=== PATIENT | female | born 1940 | race American Indian/Alaskan Native ===

== ENCOUNTER 2017-02-17 23:03 | Inpatient (IN) | payer MEDICARE ==
[2017-02-17] MEDS ORDERED: CATAPRES PO ONE (23:40)
[2017-02-17 23:53] LABS: Basophils % (Auto) 0.3 % (0.0-1.8); Eosinophils % (Auto) 1.4 % (0.0-4.3); Hematocrit 43.3 % (30.3-42.9); Hemoglobin 13.6 gm/dl (10.1-14.3); Mean Corpuscular HGB Conc 32 % (30-34); Mean Corpuscular Hemoglobin 29 pg (28-32); Mean Corpuscular Volume 93 fl (79-97); Platelet Count 307 K/mm3 (140-440); Red Blood Count 4.64 M/mm3 (3.65-5.03); Red Cell Distribution Width 13.9 % (13.2-15.2); White Blood Count 6.6 K/mm3 (4.5-11.0)
[2017-02-18 00:36] LABS: INR 16.12 (0.87-1.13)
[2017-02-18 01:21] LABS: Anion Gap 20 mmol/L; BUN/Creatinine Ratio 11.81; Blood Urea Nitrogen 13 mg/dL (7-17); Calcium 9.1 mg/dL (8.4-10.2); Carbon Dioxide 23 mmol/L (22-30); Chloride 103.4 mmol/L (98-107); Glucose 121 mg/dL (65-100); Potassium 3.8 mmol/L (3.6-5.0); Sodium 143 mmol/L (137-145)
[2017-02-18] MEDS ORDERED: VITAMIN K (ADULT ONLY) SUB-Q ONE (01:31)
--- NOTE | 2017-02-18 01:36 | Emergency Department Report ---
HPI - General Chief Complaint: Weakness Time Seen by Provider: 02/18/17 01:30 - HPI HPI: Patient sent to ED by PCP because her INR was above 10. Patient denies any symptoms state that she takes her INR for history of stroke. Patient denies any bleeding episodes, chest pain, nausea, vomiting blood. ED Past Medical Hx - Past Medical History Hx Hypertension: Yes Hx CVA: Yes Hx Congestive Heart Failure: No Hx Diabetes: No Hx Seizures: No Hx Psychiatric Treatment: Yes Hx Asthma: No Hx COPD: No Hx Dementia: Yes Hx HIV: No Additional medical history: ATRIAL FIB - Surgical History Hx Coronary Stent: No Hx Open Heart Surgery: No - Social History Smoking Status: Never Smoker Substance Use Type: None - Medications Home Medications: Home Medications Medication Instructions Recorded Confirmed Last Taken Type Folic Acid [Folvite] 1 mg PO DAILY 09/27/13 02/18/17 02/17/17 History 1MG Metoprolol [Lopressor TAB] 50 mg PO DAILY 09/27/13 02/18/17 02/17/17 History 50MG Sucralfate [Carafate] 1 tab PO DAILY 09/27/13 02/18/17 02/17/17 History 1MG risperiDONE 0.5 mg PO HS 09/27/13 02/18/17 02/17/17 History 0.5 MG Simvastatin [Zocor TAB] 20 mg PO QHS 01/22/15 02/18/17 02/17/17 History 20MG Memantine HCl 10 mg PO DAILY 02/18/17 02/18/17 02/17/17 History 10MG Warfarin [Coumadin] 7.5 mg PO DAILY@1700 02/18/17 02/18/17 02/17/17 History 7.5 ED Review of Systems ROS: Stated complaint: ABNORMAL LABS Other details as noted in HPI Comment: All other systems reviewed and negative Endocrine: no symptoms reported Musculoskeletal: as per HPI Physical Exam - Physical Exam Vital Signs: Vital Signs 02/17/17 02/17/17 02/18/17 23:27 23:48 00:18 Temperature 98.3 F 98.8 F Pulse Rate 102 H 103 H 102 H Respiratory 16 18 Rate Blood Pressure 185/113 185/113 Blood Pressure 187/103 [Left] O2 Sat by Pulse 96 95 Oximetry Physical Exam: Gen. alert and oriented 3 in no distress Head atraumatic normocephalic Eyes PERR LA EOMI Chest regular rate and rhythm normal S1-S2 lungs clear bilaterally Abdomen soft nondistended Back no point tenderness paravertebral tenderness Neuro no focal deficit. Psych normal mood. ED Course Vital Signs 02/17/17 02/17/17 02/18/17 23:27 23:48 00:18 Temperature 98.3 F 98.8 F Pulse Rate 102 H 103 H 102 H Respiratory 16 18 Rate Blood Pressure 185/113 185/113 Blood Pressure 187/103 [Left] O2 Sat by Pulse 96 95 Oximetry ED Medical Decision Making - Lab Data Result diagrams: 02/17/17 23:38 02/17/17 23:38 Critical care attestation.: If time is entered above; I have spent that time in minutes in the direct care of this critically ill patient, excluding procedure time. ED Disposition Clinical Impression: Supratherapeutic INR Disposition: -09 OP ADMIT IP TO THIS HOSP Is pt being admited?: Yes Condition: Stable Referrals: PRIMARY CARE, [Primary Care Provider] - 3-5 Days
[2017-02-18] MEDS ORDERED: NACL 0.9% 500 ML 500 ML IV ONE ×2 (01:39→13:40)
--- NOTE | 2017-02-18 02:13 | History and Physical Report ---
History of Present Illness Date of examination: 02/18/17 Chief complaint: Elevated INR History of present illness: 76-year-old -Mal[place] female with past medical history significant for dementia, CVA, hypertension, A. fib on Coumadin was brought by her daughter for elevated INR. Her INR is emergency department was 16.2. Patient didn't have any bleeding, no other complaints. Patient has been on 7.5 mg of Coumadin. REVIEW OF SYSTEMS: GENERAL: no weight change, no fatigue, no fever HEAD: no head ache EYES: no blurry vision, no acute visual loss EARS: no hearing loss, no discharge, no earache NOSE: no stuffiness, no sneezing, no discharge MOUTH, THROAT AND NECK: no bleeding gums, no sore throat, no swollen neck CARDIAC: no palpitations, no dyspnea on exertion, no orthopnea, no PND, no edema , no chest pain RESPIRATORY: no shortness of breath, no wheeze, no cough, no sputum, no hemoptysis, no asthma GI: no decreased appetite, no nausea, no vomiting, no dysphagia, no diarrhea, no constipation, no abdominal pain URINARY: no change in frequency, no urgency, no polyuria, no hematuria, no incontinence MUSCULOSKELETAL: no muscle weakness, no pain, no joint stiffness NEUROLOGIC: no loss of sensation/numbness, no tingling, no tremors, no weakness/ paralysis HEMATOLOGIC: no anemia, no easy bruising SKIN: no rashes ENDOCRINE: no heat/cold intolerance, no polyuria, no polydipsia, no thyroid problems, no diabetes PSYCHIATRIC: no anxiety, no depression, no suicidal ideations Past History Past Medical History: atrial fib, hypertension, stroke, other (dementia) Past Surgical History: No surgical history Social history: full code. denies: smoking, alcohol abuse, prescription drug abuse, IV drug use Family history: no significant family history Medications and Allergies Allergies Allergy/AdvReac Type Severity Reaction Status Date / Time No Known Allergies Allergy Verified 03/26/15 11:57 Home Medications Medication Instructions Recorded Confirmed Last Taken Type Folic Acid [Folvite] 1 mg PO DAILY 09/27/13 02/18/17 02/17/17 History 1MG Metoprolol [Lopressor TAB] 50 mg PO DAILY 09/27/13 02/18/17 02/17/17 History 50MG Sucralfate [Carafate] 1 tab PO DAILY 09/27/13 02/18/17 02/17/17 History 1MG risperiDONE 0.5 mg PO HS 09/27/13 02/18/17 02/17/17 History 0.5 MG Simvastatin [Zocor TAB] 20 mg PO QHS 01/22/15 02/18/17 02/17/17 History 20MG Memantine HCl 10 mg PO DAILY 02/18/17 02/18/17 02/17/17 History 10MG Warfarin [Coumadin] 7.5 mg PO DAILY@1700 02/18/17 02/18/17 02/17/17 History 7.5 Exam - Physical Exam Narrative exam: Not in cardiopulmonary distress. The patient is obese. Vital signs as documented. Head exam is unremarkable. No scleral icterus . Neck is without jugular venous distension, thyromegaly, or carotid bruits. Lungs are clear to auscultation. Cardiac exam reveals regular rate and Rhythm. First and second heart sounds normal. No murmurs, rubs or gallops. Abdominal exam reveals normal bowel sounds, no masses, no organomegaly and no aortic enlargement. Extremities are nonedematous and both femoral and pedal pulses are normal. 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 No focal weakness. - Constitutional Vitals: Temp Pulse Resp BP Pulse Ox 98.8 F 102 H 18 187/103 95 02/18/17 00:18 02/18/17 00:18 02/18/17 00:18 02/18/17 00:18 02/18/17 00:18 Results - Labs CBC & Chem 7: 02/17/17 23:38 02/17/17 23:38 Labs: Laboratory Last Values WBC 6.6 K/mm3 (4.5-11.0) 02/17/17 23:38 RBC 4.64 M/mm3 (3.65-5.03) 02/17/17 23:38 Hgb 13.6 gm/dl (10.1-14.3) 02/17/17 23:38 Hct 43.3 % (30.3-42.9) H 02/17/17 23:38 MCV 93 fl (79-97) 02/17/17 23:38 MCH 29 pg (28-32) 02/17/17 23:38 MCHC 32 % (30-34) 02/17/17 23:38 RDW 13.9 % (13.2-15.2) 02/17/17 23:38 Plt Count 307 K/mm3 (140-440) 02/17/17 23:38 Lymph % (Auto) 29.2 % (13.4-35.0) 02/17/17 23:38 [place] % (Auto) 7.9 % (0.0-7.3) H 02/17/17 23:38 Eos % (Auto) 1.4 % (0.0-4.3) 02/17/17 23:38 Baso % (Auto) 0.3 % (0.0-1.8) 02/17/17 23:38 Lymph # 1.9 K/mm3 (1.2-5.4) 02/17/17 23:38 [place] # 0.5 K/mm3 (0.0-0.8) 02/17/17 23:38 Eos # 0.1 K/mm3 (0.0-0.4) 02/17/17 23:38 Baso # 0.0 K/mm3 (0.0-0.1) 02/17/17 23:38 Seg Neutrophils % 61.2 % (40.0-70.0) 02/17/17 23:38 Seg Neutrophils # 4.1 K/mm3 (1.8-7.7) 02/17/17 23:38 PT 119.0 Sec. (12.2-14.9) H 02/17/17 23:38 INR 16.12 (0.87-1.13) H* 02/17/17 23:38 Sodium 143 mmol/L (137-145) 02/17/17 23:38 Potassium 3.8 mmol/L (3.6-5.0) 02/17/17 23:38 Chloride 103.4 mmol/L (98-107) 02/17/17 23:38 Carbon Dioxide 23 mmol/L (22-30) 02/17/17 23:38 Anion Gap 20 mmol/L 02/17/17 23:38 BUN 13 mg/dL (7-17) 02/17/17 23:38 Creatinine 1.1 mg/dL (0.7-1.2) 02/17/17 23:38 Estimated GFR 58 ml/min 02/17/17 23:38 BUN/Creatinine Ratio 11.81 % 02/17/17 23:38 Glucose 121 mg/dL (65-100) H 02/17/17 23:38 Calcium 9.1 mg/dL (8.4-10.2) 02/17/17 23:38 Troponin T < 0.010 ng/mL (0.00-0.029) 02/17/17 23:38 - Imaging and Cardiology EKG: image reviewed (normal sinus rhythm) Assessment and Plan Assessment and plan: Warfarin toxicity Hypertensive urgency A.fib Dementia History of stroke - will give the patient FFP, vitamin K, stop warfarin - resume appropriate home medications, Hydralazine PRN - supportive care - CT head ordered DVT prophylaxis - Not indicated , INR 16 Disposition - to telemetry floor Advance Directives: Yes Contraindication Mechanical VTE Prophylaxis: Contraindicated Reason for no VTE Prophylaxis: Medical contraindication Plan of care discussed with patient/family: Yes
[2017-02-18 09:38] LABS: Basophils % (Auto) 0.3 % (0.0-1.8); Eosinophils % (Auto) 0.5 % (0.0-4.3); Hematocrit 42.5 % (30.3-42.9); Hemoglobin 13.5 gm/dl (10.1-14.3); Mean Corpuscular HGB Conc 32 % (30-34); Mean Corpuscular Hemoglobin 29 pg (28-32); Mean Corpuscular Volume 92 fl (79-97); Platelet Count 301 K/mm3 (140-440); White Blood Count 7.2 K/mm3 (4.5-11.0)
--- NOTE | 2017-02-18 09:57 | Cat Scan Report ---
CT scan of head without contrast: History: Warfarin toxicity. Findings: Ventricles are normal in size and midline in location. Moderate volume loss. No evidence of acute ischemia, hemorrhage or mass. No extra-axial fluid collection. Normal brainstem and cerebellum. Minimal mucosal edema of the right ethmoid sinuses and normal mastoid air cells. Impression: No acute intracranial abnormality. Sinus disease.
[2017-02-18] MEDS: FOLVITE PO SCH (10:53)
[2017-02-18] MEDS: NAMENDA XR PO SCH (10:53)
[2017-02-18] MEDS: LOPRESSOR PO SCH (10:53)
[2017-02-18] MEDS: CARAFATE PO SCH (10:53)
[2017-02-18 12:01] LABS: INR TNR (0.87-1.13)
[2017-02-18 12:56] LABS: INR > 17.67 (0.87-1.13)
[2017-02-18] MEDS ORDERED: VITAMIN K *ORAL LIQUID PO ONE (13:17)
[2017-02-18] MEDS ORDERED: VITAMIN K (ADULT ONLY) 10 MG in NACL 0.9% 50 ML IV ONE (13:17)
--- NOTE | 2017-02-18 14:53 | Event Note ---
Date: 02/18/17 pt seen and examined. INR still >17 will transfuse 4 units of FFP Will also give additional vit K
[2017-02-18] MEDS: APRESOLINE IV PRN (16:09)
[2017-02-18] MEDS: RisperDAL PO SCH (21:56)
[2017-02-18] MEDS: ZOCOR PO SCH (21:56)
[2017-02-19 02:34] LABS: INR 3.14 (0.87-1.13)
[2017-02-19] MEDS: NAMENDA XR PO SCH (09:17)
[2017-02-19] MEDS: CARAFATE PO SCH (09:17)
[2017-02-19] MEDS: FOLVITE PO SCH (09:17)
[2017-02-19] MEDS: LOPRESSOR PO SCH (09:17)
--- NOTE | 2017-02-19 10:07 | Admit Criteria Form ---
Admission Criteria Documentation: HEMATOLOGY GRG Clinical Indications for Admission to Inpatient Care ( [facility]/check or initial the applicable condition/criteria) Hospital Admission is needed for appropriate care of the patient because 1 or more of the following: [ ]I. Severe anemia indicated by 1 or more of the following (1)(2)(3) [ ]a) Altered mental status [ ]b) Chest pain [ ]c) Exertional dyspnea [ ]d) Syncope [ ]e) Other findings suggesting inadequate perfusion [ ]f) Treatment with transfusion or volume replacement is ineffective at resolving 1 or more of the following [A]: [ ]i) Tachycardia [ ]ii) Orthostatic vital sign changes as indicated by 1 or more of the following (4) [ ]1) Fall in SBP of 20 mm Hg or more 1 to 3 minutes after patient sits or stands from recumbent position [ ]2) Fall in DBP of 10 mm Hg or more 1 to 3 minutes after patient sits or stands from recumbent position [ ]II. High-risk febrile neutropenia [B] as indicated by 1 or more of the following(5)(6)(7)(8)(9) [ ]a) Profound neutropenia (C) anticipated to extend for more than 7 days [ ]b) Hemodynamic instability [ ]c) Hypoxemia [ ]d) Tachypnea [ ]e) Altered mental status [ ]f) Altered mental status [ ]g) New onset vomiting or diarrhea [ ]h) Oral or gastrointestinal mucositis that interferes with swallowing or causes severe diarrhea [ ]i) Focal infection (eg cellulitis, pneumonia, central line or catheter infection, perirectal abscess) [ ]j) Renal insufficiency (e.g., GFR of less than 30 mL/min/1.73m2 ( 0.5 mL/sec/1.73m2) [ ]k) Severe liver dysfunction (transaminase levels greater than 5 times normal) [ ]l) Platelet count less than 50,000/mm3 (50 x109/L)(6) [ ]m) Leukemia or lymphoma induction therapy [ ]n) Leukemia not in complete remission or with evidence of disease progression [ ]o) Bone marrow transplant patient [ ]p) Alemtuzumab being used for therapy [ ]q) [employer] Supportive Care in Cancer (MASCC) Risk Index score of < 21 [o) D](7)(10)(11) [ ]III. High-risk low platelet count as indicated by 1 or more of the following( 12)(13)(14) [ ]a) Severe or life-threatening bleeding (eg, intracranial, major gastrointestinal, or extensive mucosal bleeding), with any reduced platelet count [ ]b) Platelet count less than 20,000/mm3 (20 x109/L) with any active bleeding [ ]c) Platelet count less than 10,000/mm3 (10 x109/L) with minor purpura or petechiae [ ]d) Platelet count less than 5000/mm3 (5 x109/L) [ ]e) Low platelet count with hemolytic anemia [ ]IV. Active hemolysis with high-risk findings, including 1 or more of the following(15)(16)(17)(18)(19) [ ]a) Hematocrit less than 25% (0.25) [ ]b) Rapidly progressing anemia c) Thrombocytopenia(12)(13) [ ]d) Evidence of thrombosis or new renal insufficiency (eg hemolytic uremic syndrome) (20)(21)(22) [ ]V. Henonch-Schonlein purpura(23) [ ]Vl. Bleeding disorder with high-risk features (eg, hemophilia, coagulopathy) as indicated by 1 or more of the following (24)(25)(26)(27)(28) [ ]a) Central nervous system bleeding [ ]b) Retroperitoneal bleeding [ ]c) Retropharyngeal bleeding [ ]d) Gastrointestinal bleeding (29) [ ]e) Alveolar hemorrhage (30) [ ]f) Purpura [ ]f) Disseminated intravascular coagulation(31)(32) [ ]g) Major trauma(33)(34)(35) [ ]h) Deep laceration [ ]i) Head trauma(36) [ ]j) Traumatic or spontaneous expanding internal hematoma (eg retroperitonal occular) [ ]k) Failed outpatient management [X ]Bishnu. Severe over-anticoagulation or high-risk situation as indicated by 1 or more of the following(37)(38)(39) [ ]a) Active bleeding(40) [ ]b) International normalized ratio 5 or greater and rapid reversal needed [X]c) International normalized ratio 9 or greater [ ]VIIl. Congenital immunodeficiency states with severe morbidity as indicated by 1 or more of the following(41)(42)(43)(44) [ ]a) Severe infection [ ]b) Bone marrow transplant needed [ ]lX. Hyperviscosity syndrome with high-risk indicators indicated by 1 or more of the following (19)(45)(46)(47)(48) [ ]a) Polycythemia vera with hematocrit greater than 60% (0.60) [ ]b) Elevated platelet count associated with thrombosis, bleeding, or life-threatening organ dysfunction [ ]c) Severe signs or symptoms from elevated red cell, white cell, or protein levels, including 1 or more of the following: [ ]i) Altered mental status that is severe or psersistent [ ]ii) Dyspnea [ ]iii) Chest x-ray infiltrate [ ]iv) Visual changes [ ]v) Retinal abnormalities [ ]vi) Neuromuscular symptoms [ ]vii) Suspected ischemia or thrombosis [ ]viii) Bleeding [ ]X. Cryoglobulinemia requiring inpatient care due 1 or more of the following:( 49) [ ]a) Severe systemic effects (eg, glomerunephritis, other end organ damage due to vasculitis) [ ]b) Hyperviscosity (eg, acute thrombosis) [ ]c) Need for specified treatment that can only be managed in inpatient setting [ ]Xl. Methemoglobinemia and 1 or more of the following (50)(51): [ ]a) Hypotension [ ]b) Methemoglobinemia [ ]c) Cyanosis [ ]d) Seizure [ ]e) Lactic acidosis [ ]f) other severe symptoms due to tissue hypoxia (52)(53) [ ]Xll. Spleen trauma with blood loss or other need for acute (medical) treatment (34) [ ]Xlll. Transfusion reaction requiring inpatient care (eg, anaphylaxis, hemolysis, transfusion-related lung injury Hemodynamic instability)(54)(55)(56) [ ]XlV.Thrombotic disorder requiring inpatient care (eg, heparin-induced thrombocytopenia, castartrophic antiphospholipid syndrome, thrombotic thrombocytopenia) as indicated by 1 or more of the following (12)(57)(58)(59)(60): [ ]a) Need for inpatient treatment (e.g. IV anticoagulation, IV immunosuppression, plasma exchange) [ ]b) Need for inpatient monitoring (e.g. frequent laboratory testing, response to therapy) [ ]XV. Hematology condition symptom or finding for which emergency and observation care have failed or are not considered appropriate (See General Criteria: Observation Care General Admission Criteria or Pediatric General Admission Criteria guideline as appropriate The original [facility] content created by [facility] has been revised. The portions of the content which have been revised are identified through the use of italic text or in bold, and [facility] has neither reviewed nor approved the modified material. All other unmodified content is copyright [facility]. Please see references footnoted in the original [facility] edition 2017 Admission Criteria Met: Yes
--- NOTE | 2017-02-19 14:06 | Consultation ---
History of Present Illness Consult date: 02/19/17 Consult reason: atrial fibrillation, other (Supra therapeutic INR) History of present illness: This is a 76yr old woman who was sent to the ED for supra therapeutic INR. Patient has a history of paroxysmal atrial fibrillation/flutter and is on warfarin for oral anticoagulation. Initial labs shows an INR of 16.12. Head CT reports no acute intracranial process. Cardiac consultation was requested for paroxysmal atrial fibrillation on anticoagulation therapy. Past History Past Medical History: atrial fib, hypertension, stroke, other (Dementia) Social history: full code. denies: smoking, alcohol abuse, prescription drug abuse, IV drug use Family history: no significant family history Medications and Allergies Allergies Allergy/AdvReac Type Severity Reaction Status Date / Time No Known Allergies Allergy Verified 03/26/15 11:57 Home Medications Medication Instructions Recorded Confirmed Last Taken Type Folic Acid [Folvite] 1 mg PO DAILY 09/27/13 02/18/17 02/17/17 History 1MG Metoprolol [Lopressor TAB] 50 mg PO DAILY 09/27/13 02/18/17 02/17/17 History 50MG Sucralfate [Carafate] 1 tab PO DAILY 09/27/13 02/18/17 02/17/17 History 1MG risperiDONE 0.5 mg PO HS 09/27/13 02/18/17 02/17/17 History 0.5 MG Simvastatin [Zocor TAB] 20 mg PO QHS 01/22/15 02/18/17 02/17/17 History 20MG Memantine HCl 10 mg PO DAILY 02/18/17 02/18/17 02/17/17 History 10MG Warfarin [Coumadin] 7.5 mg PO DAILY@1700 02/18/17 02/18/17 02/17/17 History 7.5 Active Meds: Active Medications Folic Acid (Folvite) 1 mg PO DAILY [facility] Last Admin: 02/19/17 09:17 Dose: 1 mg Hydralazine HCl (Apresoline) 10 mg IV Q4H PRN PRN Reason: Blood Pressure Last Admin: 02/18/17 16:09 Dose: 10 mg Insulin Human Regular (Novolin R) 0 units SUB-Q ACHS FAYE PRN Reason: Protocol Last Admin: 02/19/17 11:52 Dose: Not Given Memantine (Namenda Xr) 14 mg PO DAILY [facility] Last Admin: 02/19/17 09:17 Dose: 14 mg Metoprolol Tartrate (Lopressor) 50 mg PO DAILY [facility] Last Admin: 02/19/17 09:17 Dose: 50 mg Risperidone (Risperdal) 0.5 mg PO HS [facility] Last Admin: 02/18/17 21:56 Dose: 0.5 mg Simvastatin (Zocor) 20 mg PO QHS [facility] Last Admin: 02/18/17 21:56 Dose: 20 mg Sucralfate (Carafate) 1 gm PO DAILY [facility] Last Admin: 02/19/17 09:17 Dose: 1 gm Physical Examination Vital Signs Temp Pulse Resp BP Pulse Ox 98.3 F 102 H 16 185/113 96 02/17/17 23:27 02/17/17 23:27 02/17/17 23:27 02/17/17 23:27 02/17/17 23:27 General appearance: no acute distress HEENT: Positive: PERRL Neck: Positive: trachea midline Cardiac: Positive: Reg Rate and Rhythm Neuro: Positive: Grossly Intact Results 02/18/17 08:39 02/17/17 23:38 Coagulation 02/19/17 Range/Units 01:33 PT 32.5 H (12.2-14.9) Sec. INR 3.14 H (0.87-1.13) Assessment and Plan Supra therapeutic INR s/p FFP Paroxysmal Afib warfarin therapy held. Dementia Hypertension
--- NOTE | 2017-02-19 18:37 | Progress Note ---
Assessment and Plan Warfarin toxicity - INR was >17 on admission - s/p FFP, vitamin K, warfarin on hold now - 3 mg daily once the INR is below 3.0 per advisor advocate angel [employer] founder Hypertensive urgency - now better controlled with current meds A.fib, rate controlled Dementia, cont supportive care History of stroke, no intracranial bleed on CT head Subjective Date of service: 02/19/17 Principal diagnosis: elevated inr Interval history: Patient seen and examined. Medical records and medication list reviewed. No acute event overnight noted by the RN. INR 3.14 today Patient denies any chest pain or difficulty breathing. Patient is tolerating diet. Objective - Exam Narrative Exam: GENERAL: well-developed and well-nourished AA elderly female lying on bed appeared to be in no discomfort. HEENT: Normocephalic. Atraumatic. No conjunctival congestion or icterus. Patient has moist mucous membranes. NECK: Supple. Trachea midline. CHEST/LUNGS: Clear to auscultated bilaterally, breathing nonlabored. No wheezes crackles or rhonchi. HEART/CARDIOVASCULAR: S1 and S2 positive. ABDOMEN: Abdomen is soft, nontender. Patient has normal bowel sounds. SKIN: There is no rash. Warm and dry. NEURO: No focal motor deficit. Follows command. MUSCULOSKELETAL: No joint effusion or tenderness. EXTRIMITY: No edema, no cyanosis or clubbing. PSYCH: Cooperative. - Constitutional Vitals: Vital Signs - 12hr 02/19/17 02/19/17 02/19/17 07:55 09:17 09:36 Temperature 97.4 F L 97.8 F Pulse Rate 73 73 85 Pulse Rate [ Right Radial] Respiratory 20 16 Rate Blood Pressure 130/83 138/83 127/85 O2 Sat by Pulse 97 95 Oximetry 02/19/17 02/19/17 02/19/17 10:08 10:23 10:53 Temperature 98.4 F 98.2 F 98.4 F Pulse Rate 65 68 64 Pulse Rate [ Right Radial] Respiratory 18 18 18 Rate Blood Pressure 124/72 130/80 121/72 O2 Sat by Pulse 99 99 Oximetry 02/19/17 02/19/17 02/19/17 11:01 11:11 11:25 Temperature 98.4 F 98.2 F 98.4 F Pulse Rate 60 60 61 Pulse Rate [ Right Radial] Respiratory 18 16 18 Rate Blood Pressure 123/78 123/78 119/75 O2 Sat by Pulse 99 99 99 Oximetry 02/19/17 02/19/17 02/19/17 11:49 12:14 17:17 Temperature 98.2 F Pulse Rate 63 80 Pulse Rate [ 67 Right Radial] Respiratory 18 Rate Blood Pressure 117/71 O2 Sat by Pulse 99 99 Oximetry 02/19/17 18:04 Temperature 98.8 F Pulse Rate 69 Pulse Rate [ Right Radial] Respiratory 18 Rate Blood Pressure 191/91 O2 Sat by Pulse 97 Oximetry - Labs CBC & Chem 7: 02/18/17 08:39 02/17/17 23:38 Labs: Abnormal lab results 02/18/17 02/19/17 Range/Units 16:51 01:33 PT 32.5 H (12.2-14.9) Sec. INR 3.14 H (0.87-1.13) POC Glucose 107 H (70-105)
[2017-02-19] MEDS: APRESOLINE IV PRN (20:48)
[2017-02-19] MEDS: RisperDAL PO SCH (23:02)
[2017-02-19] MEDS: ZOCOR PO SCH (23:02)
[2017-02-20] MEDS ORDERED: TYLENOL PO PRN (01:09)
[2017-02-20 06:00] LABS: Basophils % (Auto) 0.5 % (0.0-1.8); Eosinophils % (Auto) 0.9 % (0.0-4.3); Hematocrit 38.3 % (30.3-42.9); Hemoglobin 12.5 gm/dl (10.1-14.3); Mean Corpuscular HGB Conc 33 % (30-34); Mean Corpuscular Hemoglobin 30 pg (28-32); Mean Corpuscular Volume 91 fl (79-97); Platelet Count 274 K/mm3 (140-440); Red Blood Count 4.22 M/mm3 (3.65-5.03); Red Cell Distribution Width 13.9 % (13.2-15.2); White Blood Count 7.9 K/mm3 (4.5-11.0)
[2017-02-20 06:06] LABS: INR 1.76 (0.87-1.13)
[2017-02-20] MEDS: LOPRESSOR PO SCH (10:16)
[2017-02-20] MEDS: FOLVITE PO SCH (10:16)
[2017-02-20] MEDS: NAMENDA XR PO SCH (10:16)
[2017-02-20] MEDS: CARAFATE PO SCH (10:16)
--- NOTE | 2017-02-20 10:42 | Discharge Summary ---
Providers - Providers Date of Admission: 02/18/17 02:12 Date of discharge: 02/20/17 Attending physician: ANGELLA DOWNEY MD 02/19/17 11:34 Consult to Physician [CONS] Routine Consulting Provider: ARIN CHE Reason For Exam: anticoagulation recommendation Notified:: yes Primary care physician: MANAGER MEDIA Hospitalization Reason for admission: Warfarin toxicity Condition: Stable Hospital course: 76-year-old -[place] female with past medical history significant for dementia, CVA, hypertension, A. fib on Coumadin was brought by her daughter for elevated INR. Her INR is emergency department was 16.2. Patient didn't have any bleeding, no other complaints. Patient has been on 7.5 mg of Coumadin. Patient was admitted to the floor and her warfarin was held and monitor her INR, give her fresh frozen plasma, vitamin K and her INR dropped down below 2 and patient didn't have any complaints. No bleeding. Patient was discharged with 3 mg of Coumadin daily. I have called and communicated this information with her daughter. Disposition: DC-01 TO HOME OR SELFCARE Time spent for discharge: 31 minutes - Discharge Diagnoses (1) Supratherapeutic INR Status: Acute (2) Atrial flutter with rapid ventricular response Status: Acute (3) Coumadin toxicity Status: Acute Qualifiers: Encounter type: E Injury intent: accidental or unintentional Core Measure Documentation - Palliative Care Palliative Care/ Comfort Measures: Not Applicable - Core Measures Any of the following diagnoses?: history only (stroke) Exam - Physical Exam Narrative exam: Not in cardiopulmonary distress. The patient is obese. Vital signs as documented. Head exam is unremarkable. No scleral icterus . Neck is without jugular venous distension, thyromegaly, or carotid bruits. Lungs are clear to auscultation. Cardiac exam reveals regular rate and Rhythm. First and second heart sounds normal. No murmurs, rubs or gallops. Abdominal exam reveals normal bowel sounds, no masses, no organomegaly and no aortic enlargement. Extremities are nonedematous and both femoral and pedal pulses are normal. 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 No focal weakness. - Constitutional Vitals: Temp Pulse Resp BP Pulse Ox 97.9 F 96 H 14 139/86 97 02/20/17 09:14 02/20/17 10:16 02/20/17 10:00 02/20/17 10:16 02/20/17 10:00 Plan Activity: no restrictions, fall precautions Weight Bearing Status: Full Weight Bearing Diet: low cholesterol, low salt Follow up with: PRIMARY CARE, [Primary Care Provider] - 3-5 Days Prescriptions: Warfarin [Coumadin] 3 mg PO QDAY #90 tablet
--- NOTE | 2017-02-20 10:54 | Progress Note ---
Assessment and Plan Supra therapeutic INR s/p FFP Paroxysmal Afib warfarin therapy held d/t supra therapeutic INR Dementia Hypertension Recommendations: Resume Coumadin at 3 mg daily. Stable for discharge, cardiac richardson. Follow up for a recheck of her INR on her lower Coumadin dose in 3 days. Subjective Date of service: 02/20/17 Principal diagnosis: elevated inr Interval history: Patient is alert with confusion. No distress noted. Objective Vital Signs Temp Pulse Pulse Resp Resp BP Pulse Ox 02/20/17 10:16 96 H 139/86 02/20/17 10:00 103 H 14 97 02/20/17 09:14 97.9 F 105 H 18 139/86 97 02/20/17 09:00 96 H 02/20/17 04:45 98.2 F 84 18 148/61 98 02/20/17 02:30 98.8 F 99 H 18 152/78 100 02/20/17 02:18 18 02/20/17 02:00 98.9 F 99 H 18 146/73 100 02/20/17 01:30 98.6 F 101 H 18 156/78 02/20/17 01:18 18 02/20/17 00:06 97.6 F 93 H 18 141/85 97 02/20/17 00:00 98.9 F 101 H 19 148/78 99 02/19/17 22:00 95 H 18 99 02/19/17 20:50 18 02/19/17 20:48 85 18 170/90 02/19/17 19:54 98.2 F 85 20 193/95 98 02/19/17 19:03 90 02/19/17 18:04 98.8 F 69 18 191/91 97 02/19/17 18:00 98.7 F 100 H 19 137/73 99 02/19/17 17:17 80 02/19/17 12:14 67 99 02/19/17 11:49 98.2 F 63 18 117/71 99 02/19/17 11:25 98.4 F 61 18 119/75 99 02/19/17 11:11 98.2 F 60 16 123/78 99 02/19/17 11:01 98.4 F 60 18 123/78 99 02/19/17 10:53 98.4 F 64 18 121/72 99 - Physical Examination General: No Apparent Distress HEENT: Positive: PERRL Neck: Positive: trachea midline Cardiac: Positive: Reg Rate and Rhythm Lungs: Positive: Decreased Breath Sounds Neuro: Positive: Grossly Intact - Labs and Meds Coagulation 02/20/17 Range/Units 04:56 PT 20.5 H (12.2-14.9) Sec. INR 1.76 H (0.87-1.13) CBC 02/20/17 Range/Units 04:56 WBC 7.9 (4.5-11.0) K/mm3 RBC 4.22 (3.65-5.03) M/mm3 Hgb 12.5 (10.1-14.3) gm/dl Hct 38.3 (30.3-42.9) % Plt Count 274 (140-440) K/mm3 Lymph # 1.9 (1.2-5.4) K/mm3 [place] # 0.6 (0.0-0.8) K/mm3 Eos # 0.1 (0.0-0.4) K/mm3 Baso # 0.0 (0.0-0.1) K/mm3 - Imaging and Cardiology EKG: image reviewed (normal sinus rhythm)
[2017-02-20 13:54] VITALS: BP 161/88
== END 2017-02-20 15:56 | disposition home or self-care (01) | DRG 305 ==
LOC: ED 23:03 → 4A 02-18 02:12
PROVIDERS: ADMIT Internal Medicine; ATTEND Internal Medicine
PROC: 30233K1 Transfusion of Nonautologous Frozen Plasma into Peripheral Vein, Percutaneous Approach (ICD-10-PCS; principal; 2017-02-18)
PROC: 30233L1 Transfusion of Nonautologous Fresh Plasma into Peripheral Vein, Percutaneous Approach (ICD-10-PCS; 2017-02-18)
DX: I16.0 Hypertensive urgency (principal); I48.92 Unspecified atrial flutter; R79.1 Abnormal coagulation profile; F03.90 Unspecified dementia, unspecified severity, without behavioral disturbance, psychotic disturbance, mood disturbance, and anxiety; I48.91 Unspecified atrial fibrillation; T45.515A Adverse effect of anticoagulants, initial encounter; Y92.89 Other specified places as the place of occurrence of the external cause; Z86.73 Personal history of transient ischemic attack (TIA), and cerebral infarction without residual deficits; Z79.899 Other long term (current) drug therapy; I48.0 Paroxysmal atrial fibrillation
CPT/HCPCS: 36415; 70450; 80048; 82962; 84484; 85025; 85610; 86900; 86901; 93005; 93010; 96372; J0360; J3430; J7040; P9017

== ENCOUNTER 2021-10-31 13:17 | Emergency (ER) | payer MEDICARE ==
[2021-10-31] MEDS ORDERED: levETIRAcetam 1000 MG/NS 0.75% 1,000 MG/100 ML BAG IV ONE (15:05)
--- NOTE | 2021-10-31 15:31 | Emergency Department Report ---
HPI - General Chief Complaint: Seizure Time Seen by Provider: 10/31/21 14:58 - HPI HPI: Room 3 Patient is an 80-year-old female presenting with a chief complaint of seizure/postictal. Patient has history of seizure disorder and family found the patient slow to respond this morning and then had a seizure at home. EMS was called and the patient had a second seizure with EMS. The patient has a history of previous CVA and has had 1 seizure in her life approximately 6 years ago was never placed on any antiepileptics per the daughter. ED Past Medical Hx - Past Medical History Hx Hypertension: Yes Hx CVA: Yes Hx Arthritis: Yes Hx Seizures: Yes Hx Psychiatric Treatment: Yes Hx Dementia: Yes Additional medical history: ATRIAL FIB - Surgical History Past Surgical History?: No - Family History Family history: no significant - Social History Smoking Status: Unknown if ever smoked Substance Use Type: None - Medications Home Medications: Home Medications Medication Instructions Recorded Confirmed Last Taken Type Folic Acid [Folvite] 1 mg PO DAILY 09/27/13 02/18/17 02/17/17 History 1 MG Metoprolol [Lopressor TAB] 50 mg PO DAILY 09/27/13 02/18/17 02/17/17 History 50 MG Sucralfate [Carafate] 1 tab PO DAILY 09/27/13 02/18/17 02/17/17 History 1 MG risperiDONE 0.5 mg PO HS 09/27/13 02/18/17 02/17/17 History 0.5 MG Simvastatin (Nf) [Zocor TAB] 20 mg PO QHS 01/22/15 02/18/17 02/17/17 History 20 MG Memantine HCl 10 mg PO DAILY 02/18/17 02/18/17 02/17/17 History 10 MG Warfarin [Coumadin] 3 mg PO QDAY #90 tablet 02/20/17 Unknown Rx levETIRAcetam [Keppra TAB] 500 mg PO BID #60 tablet 10/31/21 Unknown Rx ED Review of Systems ROS: Stated complaint: AMS/POSS SEIZURE Other details as noted in HPI Comment: Unobtainable due to pts medical conditions Constitutional: no symptoms reported Physical Exam - Physical Exam Vital Signs: Vital Signs 10/31/21 13:57 Temperature 98.1 F Pulse Rate 80 Respiratory 16 Rate Blood Pressure 145/93 [Left] O2 Sat by Pulse 97 Oximetry Physical Exam: GENERAL: The patient is well-developed well-nourished female lying on stretcher not appearing to be in acute distress. [] HEENT: Normocephalic. Atraumatic. Extraocular motions are intact. Patient has moist mucous membranes. NECK: Supple. Trachea midline CHEST/LUNGS: Clear to auscultation. There is no respiratory distress noted. HEART/CARDIOVASCULAR: Regular. There is no tachycardia. There is no gallop rub or murmur. ABDOMEN: Abdomen is soft, nontender. Patient has normal bowel sounds. There is no abdominal distention. SKIN: There is no rash. There is no edema. There is no diaphoresis. NEURO: The patient is resting comfortably but does not answer questions. Patient does state that my stethoscope is cold when I examined her. The patient is not cooperative with neurologic exam. The patient has normal speech MUSCULOSKELETAL: There is no evidence of acute injury. ED Course Vital Signs 10/31/21 13:57 Temperature 98.1 F Pulse Rate 80 Respiratory 16 Rate Blood Pressure 145/93 [Left] O2 Sat by Pulse 97 Oximetry ED Medical Decision Making - Lab Data Result diagrams: 10/31/21 16:23 10/31/21 16:23 Laboratory Tests 10/31/21 10/31/21 10/31/21 16:23 16:23 16:23 WBC 9.8 RBC 4.62 Hgb 13.9 Hct 42.9 MCV 93 MCH 30 MCHC 32 RDW 13.1 L Lymph % (Auto) 9.3 L [place] % (Auto) 5.5 Eos % (Auto) 0.0 Baso % (Auto) 0.3 Lymph # (Auto) 0.9 L [place] # (Auto) 0.5 Eos # (Auto) 0.0 Baso # (Auto) 0.0 Seg Neutrophils % 84.9 H Seg Neutrophils # 8.3 H PT 14.3 INR 1.00 APTT 20.0 L Sodium 141 Potassium 4.1 Chloride 106.0 Carbon Dioxide 25 Anion Gap 14 BUN 11 Creatinine 0.9 Estimated GFR > 60 BUN/Creatinine Ratio 12 Glucose 129 H Calcium 8.6 Magnesium 10/31/21 16:23 WBC RBC Hgb Hct MCV MCH MCHC RDW Lymph % (Auto) [place] % (Auto) Eos % (Auto) Baso % (Auto) Lymph # (Auto) [place] # (Auto) Eos # (Auto) Baso # (Auto) Seg Neutrophils % Seg Neutrophils # PT INR APTT Sodium Potassium Chloride Carbon Dioxide Anion Gap BUN Creatinine Estimated GFR BUN/Creatinine Ratio Glucose Calcium Magnesium 1.90 - Radiology Data Radiology results: report reviewed (CT head), image reviewed (CT head) [facility] [address] [place] [address] Cat Scan Report Signed Patient: ITZ MOORE MR#: [id number] : 1940 Acct:[id number] Age/Sex: 80 / F ADM Date: 10/31/21 Loc: ED Attending Dr: Ordering Physician: TU KENNEDY MD Date of Service: 10/31/21 Procedure(s): CT head/brain wo con Accession Number(s): [id number] cc: TU KENNEDY MD NONENHANCED CT SCAN OF THE HEAD: INDICATION / CLINICAL INFORMATION: 80 years Female; Seizure. TECHNIQUE: Routine CT head without contrast. All CT scans at this location are performed using CT dose reduction for ALARA by means of automated exposure control. COMPARISON: CT scan of the head from 06/21/2020 FINDINGS: BRAIN / INTRACRANIAL CONTENTS: No acute hemorrhage, mass effect, midline shift, hydrocephalus, or acute, large territorial infarct. Chronic ischemic changes in the left occipital lobe. Normal brain volume and v entricular/sulcal size for age. Periventricular low attenuation areas due to chronic small vessel disease; chronic ischemic changes in the basal ganglia; CT findings unchanged No space taking lesion in the frontal or in the temporal lobes. Mild dilatation of the temporal horn tips suggest mild to moderate volume loss in the medial temporal lobes. CRANIOCERVICAL JUNCTION: No significant abnormality. ORBITS: No significant abnormality of visualized orbits. SINUSES / MASTOIDS: No significant abnormality of the visualized paranasal sinuses or mastoid air cells. ADDITIONAL FINDINGS: None. IMPRESSION: No acute focal parenchymal lesion Signer Name: Kevin Goodwin MD Signed: 10/31/2021 4:45 PM Workstation Name: [id number] Transcribed By: BS Dictated By: Kevin Chew MD Electronically Authenticated By: Kevin Chew MD Signed Date/Time: 10/31/21 164 DD/ 1641 TD/TT: - Differential Diagnosis Seizure Critical care attestation.: If time is entered above; I have spent that time in minutes in the direct care of this critically ill patient, excluding procedure time. ED Disposition Clinical Impression: Seizure Disposition: HOME / SELF CARE / HOMELESS Is pt being admited?: No Does the pt Need Aspirin: No Condition: Stable Instructions: Epilepsy, Gvyp-po-Wash Additional Instructions: Return to the emergency department should you develop worsening symptoms, inability to tolerate food or liquids, high fever or any other concerns Prescriptions: levETIRAcetam [Keppra TAB] 500 mg PO BID #60 tablet Referrals: JUJU GONZALEZ MD [Staff Physician] - 3-5 Days (Dr. Gonzalez is a neurologist. Please follow-up with him for further evaluation) PRIMARY CAREMD [Referring] - 3-5 Days Time of Disposition: 17:57
[2021-10-31] MEDS ORDERED: LIDOCAINE (1%) 10 MG/1 ML VIAL 20 ML MDV INFILTRATI ONE (15:59)
--- NOTE | 2021-10-31 16:49 | Cat Scan Report ---
NONENHANCED CT SCAN OF THE HEAD: INDICATION / CLINICAL INFORMATION: 80 years Female; Seizure. TECHNIQUE: Routine CT head without contrast. All CT scans at this location are performed using CT dos e reduction for ALARA by means of automated exposure control. COMPARISON: CT scan of the head from 06/21/2020 FINDINGS: BRAIN / INTRACRANIAL CONTENTS: No acute hemorrhage, mass effect, midline shift, hydrocephalus, or acu te, large territorial infarct. Chronic ischemic changes in the left occipital lobe. Normal brain volu me and ventricular/sulcal size for age. Periventricular low attenuation areas due to chronic small ve ssel disease; chronic ischemic changes in the basal ganglia; CT findings unchanged No space taking lesion in the frontal or in the temporal lobes. Mild dilatation of the temporal horn tips suggest mild to moderate volume loss in the medial temporal lobes. CRANIOCERVICAL JUNCTION: No significant abnormality. ORBITS: No significant abnormality of visualized orbits. SINUSES / MASTOIDS: No significant abnormality of the visualized paranasal sinuses or mastoid air delvin ls. ADDITIONAL FINDINGS: None. IMPRESSION: No acute focal parenchymal lesion Signer Name: Kevin Goodwin MD Signed: 10/31/2021 4:45 PM Workstation Name: [id number]
[2021-10-31 17:00] VITALS: BP 130/65
[2021-10-31 17:00] LABS: BUN/Creatinine Ratio 12; Blood Urea Nitrogen 11 mg/dL (7-17); Calcium 8.6 mg/dL (8.4-10.2); Hemolysis Index 4
[2021-10-31 17:15] LABS: Basophils % (Auto) 0.3 % (0.0-1.8); Hematocrit 42.9 % (30.3-42.9); Hemoglobin 13.9 gm/dl (10.1-14.3); Lymphocytes # (Auto) 0.9 K/mm3 (1.2-5.4); Lymphocytes % (Auto) 9.3 % (13.4-35.0); Mean Corpuscular HGB Conc 32 % (30-34); Mean Corpuscular Volume 93 fl (79-97); Monocytes # (Auto) 0.5 K/mm3 (0.0-0.8); Monocytes % (Auto) 5.5 % (0.0-7.3); Red Blood Count 4.62 M/mm3 (3.65-5.03); Red Cell Distribution Width 13.1 % (13.2-15.2)
[2021-10-31] MEDS ORDERED: ENOXAPARIN 100 MG/1 ML INJ SUB-Q ONE (17:51)
[2021-10-31 18:15] LABS: Platelet Count 109 K/mm3 (140-440)
--- NOTE | 2021-11-02 17:50 | Electrocardiograph Report ---
[facility] Test Date: 2021-10-31 Test Time: 14:10:39 Pat Name: ITZ MOORE Department: Room: Gender: F Supportability Engineer: GP : 1940 Requested By: TU KENNEDY Order Number: [id number] Reading MD: Melissa Corley Measurements Intervals [place] Rate: 108 P: MI: QRS: 3 QRSD: 69 T: -89 QT: 305 QTc: 410 Interpretive Statements Atrial fibrillation Nonspecific T wave abnormality No previous ECG available for comparison Electronically Signed On 11-02-2021 17:49:43 EDT by Melissa Corley
== END 2021-10-31 18:53 | disposition home or self-care (01) ==
LOC: ED 13:17
DX: G40.909 Epilepsy, unspecified, not intractable, without status epilepticus (principal); I10 Essential (primary) hypertension
CPT/HCPCS: 36415; 70450; 80048; 83735; 85025; 85610; 85730; 93005; 96374; 99284; J1953